=== PATIENT | male | born 1950 | race Caucasian/White ===

== ENCOUNTER → 2020-08-11 | Outpatient (CLI) | payer MEDICARE ==
[~2020-08-11] MED LIST: APIX5TAB PO; CELE200C PO; CITA10TA4 PO; DILT120C64 PO; OMEP-110 PO; TADA20TA33 PO; TEMA30CA PO
== END | disposition home or self-care (01) ==
LOC: CVU 06:56
PROVIDERS: ATTEND Internal Medicine Cardiovascular Disease
DX: I08.1 Rheumatic disorders of both mitral and tricuspid valves (principal); I48.91 Unspecified atrial fibrillation
CPT/HCPCS: 93306

== ENCOUNTER → 2020-09-30 | Outpatient (CLI) | payer MEDICARE ==
[~2020-09-30] MED LIST changes: +OMNIPAQUE 350 MG/ML, 150 ML BOTTLE ONE
== END | disposition home or self-care (01) ==
LOC: CFH 09:51
PROVIDERS: ATTEND Internal Medicine Cardiovascular Disease
DX: I48.91 Unspecified atrial fibrillation (principal)
CPT/HCPCS: 71046; 75572; 82565; Q9967

== ENCOUNTER 2020-10-03 10:06 | Observation (INO) | payer MEDICARE ==
[~2020-10-03] VITALS: Ht 185.4 cm; Wt 89.0 kg
[~2020-10-03 10:06] MED LIST changes: -OMNIPAQUE 350 MG/ML, 150 ML BOTTLE ONE
[2020-10-03] MEDS ORDERED: SODIUM CHLORIDE 0.9% 1,000 ML IV ONE (11:00)
[2020-10-03] MEDS ORDERED: SODIUM CHLORIDE 0.9% 1,000 ML IV SCH (11:00)
[2020-10-03] MEDS ORDERED: DILT300C42 PO (11:12)
[2020-10-03] MEDS ORDERED: CETI10CA PO (11:12)
[2020-10-03] MEDS ORDERED: METO25TA2 PO (11:12)
[2020-10-03] MEDS ORDERED: TAMS-11 PO (11:13)
[2020-10-03 11:21] VITALS: BP 118/90
[2020-10-03 11:24] LABS: BASOPHILS % (AUTO) 0 % (0-1); EOSINOPHILS % (AUTO) 2 % (1-7); LYMPHOCYTES % (AUTO) 21 % (22-44); MEAN CORPUSCULAR HEMOGLOBIN 31.5 pg (27.5-34.5); MEAN CORPUSCULAR HGB CONC 33.7 g/dL (33.2-36.2); MEAN PLATELET VOLUME 7.8 fL (7.4-10.4); MONOCYTES % (AUTO) 8 % (2-9); NEUTROPHILS % (AUTO) 70 % (42-75); PLATELET COUNT 222 x10^3/uL (130-400); RED CELL DISTRIBUTION WIDTH 13.9 % (9.4-14.8)
[2020-10-03] MEDS ORDERED: PLEASE ENTER HEIGHT AND WEIGHT MC SCH (11:30)
[2020-10-03 11:35] LABS: ANION GAP 9 mmol/L (5-15); CALCIUM 8.5 mg/dL (8.5-10.1); CHLORIDE 112 mmol/L (98-107); CREATININE 0.75 mg/dL (0.7-1.3)
[2020-10-03] MEDS ORDERED: FENTANYL PF 250 MCG/5ML ONE (12:21)
[2020-10-03] MEDS ORDERED: MIDAZOLAM 1 MG/ML, 2ML ONE (12:21)
[2020-10-03] MEDS ORDERED: ONDANSETRON 2MG/ML, 2ML ONE (12:43)
[2020-10-03] MEDS ORDERED: LIDOCAINE 2%, 20ML ONE (12:58)
[2020-10-03] MEDS ORDERED: ROCURONIUM 10MG/ML,5ML ONE (13:59)
[2020-10-03] MEDS ORDERED: HEPARIN 1,000 UNITS/ML, 10ML ONE ×2 (13:59)
[2020-10-03] MEDS ORDERED: PHENYLEPHRINE 10 MG/ML ONE ×2 (13:59)
[2020-10-03] MEDS ORDERED: SUCCINYLCHOLINE 20 MG/ML, 10ML ONE (14:00)
[2020-10-03] MEDS ORDERED: PROPOFOL 10 MG/ML, 20ML ONE ×2 (14:00→15:37)
[2020-10-03] MEDS ORDERED: DEXAMETHASONE 4 MG/ML, 1ML ONE (14:00)
[2020-10-03] MEDS ORDERED: EPHEDRINE 50 MG/ML, 1ML IVPush PRN (15:30)
[2020-10-03] MEDS ORDERED: LABETALOL 5MG/ML, 20ML IV PRN (15:30)
[2020-10-03] MEDS ORDERED: DIPHENHYDRAMINE 50 MG/ML, 1ML IVPush PRN (15:30)
[2020-10-03] MEDS ORDERED: ONDANSETRON 2MG/ML, 2ML IVPush PRN ×2 (15:30→16:30)
[2020-10-03] MEDS ORDERED: OXYcodone 5 MG/5 ML ORAL.SOL UDC PO PRN (15:30)
[2020-10-03] MEDS ORDERED: DIAZEPAM 5 MG/ML, 2ML IVPush PRN (15:30)
[2020-10-03] MEDS ORDERED: PROMETHAZINE 25 MG/ML, 1ML IVPush PRN (15:30)
[2020-10-03] MEDS ORDERED: MEPERIDINE/PF 25MG/0.5ML IVPush PRN (15:30)
[2020-10-03] MEDS ORDERED: ACETAMINOPHEN 325 MG TABLET PO PRN ×2 (15:30→16:30)
[2020-10-03] MEDS ORDERED: morphine SULFATE 10 MG/ML, 1ML IVPush PRN (15:30)
[2020-10-03] MEDS ORDERED: FENTANYL PF 100 MCG/2ML IV PRN (15:30)
[2020-10-03] MEDS ORDERED: ZOLPIDEM 5MG TABLET PO PRN (16:30)
[2020-10-03] MEDS ORDERED: OXYcodone 5 MG/5 ML ORAL.SOL UDC ONE (16:50)
[2020-10-03] MEDS ORDERED: ACETAMINOPHEN 650 MG/20.3 ML UDC ONE (16:51)
[2020-10-03] MEDS ORDERED: APIXABAN 5 MG TABLET PO SCH ×2 (17:00→21:00)
[2020-10-03] MEDS ORDERED: TEMAZEPAM 15 MG CAPSULE ONE (20:05)
[2020-10-03 20:10] VITALS: BP 112/76
[2020-10-03] MEDS: OMEPRAZOLE 20 MG CAPSULE.DR PO SCH (20:15)
[2020-10-03] MEDS: TEMAZEPAM 30 MG CAPSULE PO SCH (20:15)
[2020-10-03] MEDS: SOTALOL 80MG TABLET PO SCH (20:16)
[2020-10-03] MEDS: COLCHICINE 0.6 MG CAPSULE PO SCH (20:16)
[2020-10-04 01:59] VITALS: BP 98/61
[2020-10-04] MEDS: APIXABAN 5 MG TABLET PO SCH ×2 (05:36→18:00)
[2020-10-04 06:51] VITALS: BP 118/76
[2020-10-04] MEDS: CETIRIZINE 10 MG TABLET PO SCH (09:00)
[2020-10-04] MEDS ORDERED: METOPROLOL SUCCINATE 25 MG TAB.ER.24H PO SCH (09:00)
[2020-10-04] MEDS: SOTALOL 80MG TABLET PO SCH ×2 (10:14→21:50)
[2020-10-04] MEDS: COLCHICINE 0.6 MG CAPSULE PO SCH ×2 (10:14→21:50)
[2020-10-04] MEDS: TAMSULOSIN 0.4 MG CAP.ER.24H PO SCH (10:15)
[2020-10-04 13:02] VITALS: BP 109/79
[2020-10-04 21:49] VITALS: BP 118/76
[2020-10-04] MEDS: OMEPRAZOLE 20 MG CAPSULE.DR PO SCH (21:50)
[2020-10-04] MEDS: TEMAZEPAM 30 MG CAPSULE PO SCH (21:56)
[2020-10-05 00:21] VITALS: BP 122/76
[2020-10-05] MEDS: APIXABAN 5 MG TABLET PO SCH (04:06)
[2020-10-05 07:18] VITALS: BP 134/68
[2020-10-05] MEDS ORDERED: SOTA80TA18 PO (10:26)
[2020-10-05] MEDS ORDERED: COLC0.6C3 PO (10:26)
[2020-10-05] MEDS: TAMSULOSIN 0.4 MG CAP.ER.24H PO SCH (10:30)
[2020-10-05] MEDS: SOTALOL 80MG TABLET PO SCH (10:30)
[2020-10-05] MEDS: CETIRIZINE 10 MG TABLET PO SCH (10:30)
[2020-10-05] MEDS: COLCHICINE 0.6 MG CAPSULE PO SCH (10:30)
== END 2020-10-05 11:30 | disposition home or self-care (01) ==
LOC: CACL 10:06 → 5SO 18:09 → CACL 18:45 → INTOOBSV 21:11 → 5SO 21:11 → DCLOUNGE 10-05 11:15
PROVIDERS: ADMIT Internal Medicine Cardiovascular Disease; ATTEND Internal Medicine Cardiovascular Disease
DX: I48.91 Unspecified atrial fibrillation (principal); Z20.822 Contact with and (suspected) exposure to COVID-19; I48.92 Unspecified atrial flutter; I10 Essential (primary) hypertension; F10.10 Alcohol abuse, uncomplicated; Z79.899 Other long term (current) drug therapy
CPT/HCPCS: 36415; 80048; 85025; 85347; 93005; 93308; 93312; 93321; 93325; 93613; 93656; 93662; C1730; C1732; C1759; C1766; C1893; C1894; G0378; J0330; J1100; J1644; J2250; J2370; J2405; J2704; J3010; J3490; U0003; U0005